=== PATIENT | male | born 1955 | race Caucasian/White ===

== ENCOUNTER → 2025-04-27 13:57 | Outpatient (CLI) | payer MEDICARE, SELFPAY ==
--- NOTE | ~2025-04-27 | XR_ITS ---
EXAMINATION: XR shoulder LT min 2V DATE: 04/27/2025 14:31 INDICATION: Pain in left shoulder TECHNIQUE: 4 images of the left shoulder were obtained. COMPARISON: None FINDINGS: Mild joint space narrowing in the left acromioclavicular joint. There is a 4 x 3 mm ossific density just lateral to the lateral aspect of the acromium. Differential includes osteophytes or avulsion fracture of indeterminate age. Bone mineralization is within normal limits. No other possible fracture. No dislocation of the left humeral head. IMPRESSION: 1.There is a 4 x 3 mm ossific density just lateral to the lateral aspect of the acromium. Differential includes osteophytes or avulsion fracture of indeterminate age. 2. Mild joint space narrowing in the left acromioclavicular joint. If symptoms persist or worsen, consider a short-term follow-up study or additional imaging for further assessment. Reviewed, dictated and finalized at location Q. IMPRESSION: 1.There is a 4 x 3 mm ossific density just lateral to the lateral aspect of the acromium. Differential includes osteophytes or avulsion fracture of indetermin ate age. 2. Mild joint space narrowing in the left acromioclavicular joint. If symptoms persist or worsen, consider a short-term follow-up study or additio nal imaging for further assessment.
--- NOTE | ~2025-04-27 | XR_ITS ---
EXAMINATION: XR shoulder RT min 2V DATE: 04/27/2025 14:32 INDICATION: Pain in right shoulder TECHNIQUE: 4 images of the right shoulder were obtained. COMPARISON: None FINDINGS: Bone mineralization is within normal limits. No fracture. No dislocation. Clips project over the right side of the neck. Mild joint space narrowing in the right acromioclavicular joint. Old healed fracture of the right midclavicle. IMPRESSION: 1. No fracture. 2. Mild joint space narrowing in the right acromioclavicular joint If symptoms persist or worsen, consider a short-term follow-up study or additional imaging for further assessment. Reviewed, dictated and finalized at location Q. IMPRESSION: 1. No fracture. 2. Mild joint space narrowing in the right acromioclavicular joint If symptoms persist or worsen, consider a short-term follow-up study or additio nal imaging for further assessment.
--- NOTE | ~2025-04-27 | XR_ITS ---
EXAMINATION: XR thoracic spine 3V DATE: 04/27/2025 14:31 INDICATION: Pain in thoracic spine TECHNIQUE: 4 images of the thoracic spine were obtained. COMPARISON: None. FINDINGS: Thoracic vertebral body heights and alignment are within normal limits. No compression fracture in the thoracic spine. Mild degenerative change scattered throughout the thoracic spine. IMPRESSION: 1. No compression fracture in the thoracic spine. 2. Mild degenerative change scattered throughout the thoracic spine. If symptoms persist or worsen, consider an MRI of the thoracic spine for further assessment. Reviewed, dictated and finalized at location Q. IMPRESSION: 1. No compression fracture in the thoracic spine. 2. Mild degenerative change scattered throughout the thoracic spine. If symptoms persist or worsen, consider an MRI of the thoracic spine for furthe r assessment.
--- OUTSIDE RECORDS SUMMARY | 2025-04-27 14:03 | XMS_ITS | Clinical Summary ---
Author Organization [facility] Address [address] [place] [address] [place] [address] Care Team Providers Care Community Program Assistant Name Role Phone Unavailable Primary Care Provider Unavailabl e Source Comments [facility],non-owned Affiliates and Associated Physician Practices is amultiple site organization consisting of ambulatory clinics and hospital sitesin [place], [place], [place] and [place]. This disclosure is being madepursuant to the Care Everywhere program and may not contain all information available regarding this patient. Last updated 18.[facility] Allergies No known active allergies Medications * Be aware that medications may not be up to date on this document. Alwaysverify current medications with the patient. divalproex (DEPAKOTE) 500 MG tabletIndicatio ns:Seizures (HCC) Take 1 tablet by mouth 2 times daily 180 tablet 3 9 Active lovastatin (Mevacor) 10 MG tablet Take 1 (one) tablet by mouth at bedtime Active metFORMIN (Glucophage) 500 MG tablet Take 1 (one) tablet by mouth 2 times daily with morning and evening meal Active olmesartan (Benicar) 5 MG tablet Take 1 (one) tablet by mouth once daily Active hydroCHLOROthia zide (Microzide) 12.5 MG capsule Take 1 (one) capsule by mouth once daily Active glimepiride (Amaryl) 1 MG tablet Take 1 (one) tablet by mouth daily with breakfast Active levothyroxine (Synthroid) 25 MCG tablet Take 1 (one) tablet by mouth daily before breakfast Active HYDROcodone-antoinette taminophen ([place]) 5-325 MG tabletIndicatio ns: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, right Take 1 (one) tablet by mouth every 6 hours as needed for Pain 28 tablet Active Encounters Date Type Department Care Team Description 02/24/2025 7:27 AM CDT Anesthesia Event [facility] Op [address] [place], [place] [address] Tobin Jacome MD Ferguson, Joshua A, DO 02/24/2025 7:20 AM CDT - 02/24/2025 7:51 AM CDT Surgery [facility] Op [address] [place] [id number] Steven Carballo, DO KNEE MANIPULATION UNDER ANESTHESIA 02/24/2025 5:29 AM CDT - 02/24/2025 9:24 AM CDT Hospital Encounter [facility] Op [address] [place] [id number] Steven Carballo, DO Surgery General Discharge Disposition: Home or Self Care 02/22/2025 Travel from Last 3 Months Social History Tobacco Use Types Packs/Day Years Used Date Smoking Tobacco: Former Cigarettes S tarted: 2014 Smokeless Tobacco: Never Tobacco Cessation:Counseling Given: Not Answered AUDIT-C Answer Date Recorded Q1: How often do you have a drink containing alc ohol? Monthly or less 02/24/2025 Q2: How many drinks containi ng alcohol do you have on a typical day when you are drinking? 1 or 2 02/24/2025 Q3: How often do you have si x or more drinks on one occasion? Never 02/24/2025 Sex and Gender Information Value Date Recorded Sex Assigned at Not on file Legal Sex Male 3:55 PM CDT Gender Identity Not on file Sexual Orientation Not on file Last Filed Vital Signs Vital Sign Reading Time Taken Comments Blood Pressure 121/67 02/24/2025 8:55 AM CDT Pulse 60 02/24/2025 8:55 AM CDT Temperature 36.2 C (97.2 F) 02/24/2025 7:40 AM CDT Respiratory Rate 12 02/24/2025 8:55 AM CDT Oxygen Saturation 95% 02/24/2025 8:55 AM CDT Inhaled Oxygen Concentration - - Weight 88.5 kg (195 lb) 02/24/2025 5:55 AM CDT Height 182.9 cm (6') 02/24/2025 5:55 AM CDT Body Mass Index 26.45 02/24/2025 5:55 AM CDT Plan of Treatment Health Maintenance Due Date Last Done Comments COLOGUARD (AGES 45-75) - COL ON CA SCREENING 1956 COLON MONITORING 1956 COLONOSCOPY - COLON CA SCREENING 1956 CT COLONOGRAPHY - COLON CA SCREENING 1956 Colorectal Cancer Screening 1956 FIT - COLON CA SCREENING 1956 FLEX SIG - COLON CA SCREENING 1956 MEDICARE AWV 12 MONTHS 1956 HEPATITIS C SCREENING 05/09/1974 DTAP/TDAP/TD VACCINES (1 - Tdap) 1975 PNEUMOCOCCAL VACCINE 50+ (1 of 1 - PCV) 2006 ZOSTER VACCINE (1 of 2) 2006 AAA SCREENING 2021 COVID-19 VACCINE (1 - 2023-2 5 season) 2024 DEPRESSION SCREENING 09/02/2024 INFLUENZA VACCINE (#1) 2025 Respiratory Syncytial Virus (RSV) Vaccine Pt: or over 60 yrs (1 - 1-dose 75+ series) 2031 HEPATITIS B VACCINE Aged Out No longe r eligible based on patient's age to complete this topic HIB VACCINE Aged Out No longer eligi ble based on patient's age to complete this topic HPV VACCINE Aged Out No longer eligi ble based on patient's age to complete this topic MENINGOCOCCAL (Group B) VACC INE SHARED DECISION-MAKING Aged Out No longer eligibl e based on patient's age to complete this topic MENINGOCOCCAL GROUPS A/C/Y/W VACCINE Aged Out No longer eligible b ased on patient's age to complete this topic Procedures Procedure Name Priority Date/Time Associated Diagnosis Comments IMAGING/RADIOLOGY/ XRAY RESULTS ORDER 02/25/2025 2:34 PM CDT GLUCOSE - POINT OF CARE Routine 02/24/2025 8:11 AM CDT ID MANIPULATN KNEE JT+ANESTHESIA 02/24/2025 7:17 AM CDT Special Needs 15 MIN, PSYCHIATRIC LPN PERIPHERAL BLOCK Routine 02/24/2025 7:12 AM CDT GLUCOSE - POINT OF CARE Routine 02/24/2025 6:36 AM CDT from Last 3 Months Results * IMAGING/RADIOLOGY/XRAY RESULTS ORDER (02/25/2025 2:34 PM CDT) Anatomical Region Laterality Modality Other Narrative 02/25/2025 2:34 PM CDT Ordered by an unspecified provider. us Scanned Document IMAGING Final Result * GLUCOSE - POINT OF CARE (02/24/2025 8:11 AM CDT) Only the most recent of2 resultswithin the time period is included. Glucose WB/POC 97 70 - 99 mg/dL 02/24/2025 8:16 AM CDT [facility] Specimen Type Arterial/C apillary 02/24/2025 8:16 AM CDT [facility] Blood BLOOD SPECIMEN / Unknown 02/24/2025 8:11 AM CDT 02/24/2025 8:16 AM CDT Steven Carballo DO LAB - POINT OF CARE DORA SPEARS Final Result [facility] [address] [place] [address] * Peripheral Nerve Block (02/24/2025 7:12 AM CDT) Narrative Leo Lauren DO - 02/24/2025 7:12 AM CDT Leo Lauren DO 02/24/2025 7:13 AM Peripheral Nerve Block Procedure: Peripheral Nerve Block Patient Location: Pre-op Preprocedure Section: Indications: at surgeon's request, postop pain management and at patient's request. Pre-anesthetic Checklist: Patient identified, IV Checked, Site examined and clear, Risks and benefits discussed, Surgical consent verified, Monitors and equipment, Time-out performed, Informed consent obtained, Pre-op evaluation done, Questions answered/anesthesia questions answered, Allergies reviewed and Removal hand/wrist jewelry Monitors: Pulse Ox. Patient Condition: sedated, meaningful contact maintained throughout procedure Patient Position: supine Patient Sedated? Yes Sedation Type: mild Sedation Agents: fentaNYL (PF) (SUBLIMAZE) injection - Intravenous 100 mcg - 02/24/2025 7:04:00 AM midazolam (VERSED) injection - Intravenous 2 mg - 02/24/2025 7:04:00 AM Procedure Section Laterality: right Block Performed: adductor canal Prep: Chloraprep Strerile Field: gloves, mask, hat/cap and sterile ultrasound sleeve Skin localized with: lidocaine (XYLOCAINE) 1 % injection - Infiltration 3 mL - 02/24/2025 7:05:00 AM Needle Type: Echogenic insultaed Needle Gauge: 21 Needle Length: 100 mm Catheter? No Ultrasound Guided? Yes Technique: in plane Visualization: Preliminary scan performed, Important anatomical structures identified, Needle tip visualized throughout the procedure, Target identified, No intraneural or intravascular puncture occurred, Ultrasound image in chart, Local visualized surrounding nerve on ultrasound and Hydrodissection utilized Injection was made incrementally with constant monitoring and aspirations every 5 mL's Block Agents or Additives used? Yes Block agents used: ropivacaine (NAROPIN) 5 MG/ML (0.5%) injection - Infiltration 35 mL - 02/24/2025 7:10:00 AM Procedure Tolerance: tolerated well, performed while the patient was sedated and no immediate complications Assessment: completed Procedure Start Time: 02/24/2025 7:04 AM. Procedure End Time: 02/24/2025 7:10 AM. Procedure Total Time: 6 minutes. Staff Section Anesthesia Provider: Leo Lauren DO, Performed the procedure Additional Comments: This block was performed for post operative analgesia at surgeon's request. Please see intraop navigator for medications administered. Sterile technique followed. A universal timeout was completed prior to the procedure.. Leo Lauren DO GENERAL ANESTHESIA ORDERABL ES Final Result from Last 3 Months [place] [phone]
== END ==
PROVIDERS: PCP Family Medicine; Visit Provider Family Medicine
DX: M51.34 Other intervertebral disc degeneration, thoracic region (principal); M25.511 Pain in right shoulder; M25.512 Pain in left shoulder
CPT/HCPCS: 72072; 73030

== ENCOUNTER 2025-05-19 09:23 | Emergency (ER) | payer MEDICARE, SELFPAY ==
[2025-05-19] VITALS (13 sets, daily range): BP systolic 127–170; BP diastolic 67–93; PULSE 64–76; RESP 11–25; TEMP 36.7; O2SAT 92–99
--- NOTE | ~2025-05-19 | XR_ITS ---
Examination: XR chest 2V Clinical History: chest pain GENERALIZED SOB COUGH X 1 MO. Comparison: None Technique: PA and Lateral Findings: Cardiomediastinal silhouette normal size and configuration. Lungs clear. No acute bony abnormality. IMPRESSION: 1. No acute cardiopulmonary findings. Reviewed, dictated and finalized at location R.
--- NOTE | ~2025-05-19 | CT_ITS ---
EXAMINATION: CTA chest PE protocol DATE: 05/19/2025 11:44 INDICATION: Shortness of breath. Chest pain. TECHNIQUE: Computed tomography angiography (CTA) of the chest was performed with 100 mL Omnipaque-350 intravenous contrast timed to evaluate the pulmonary arteries. Coronal maximum intensity projection 3D-reconstructions were created by the technologist. Automated exposure control and iterative reconstruction technique were employed. The dose-length product was 626.75 mGy-cm. COMPARISON: Chest CT 07/18/2016 FINDINGS: There is mild emphysema. There is mild atelectasis bilaterally. No pleural effusion. There are changes of right hemithyroidectomy. The heart size is normal. No pericardial effusion. There are coronary artery calcifications. There is no pulmonary embolus. There is an 18 mm cyst in the liver. There is mild thoracic spondylosis. There is mild chronic anterior wedging of multiple vertebral bodies. IMPRESSION: 1. No pulmonary embolus. Sensitivity is mildly decreased by motion artifact. 2. Mild emphysema. Reviewed, dictated and finalized at location E.
--- NOTE | 2025-05-19 09:24 | ECG_ITS ---
Test Date: 2025-05-19 09:29:34 Measurements Intervals [place] Rate: 71 P: 33 NJ: 155 QRS: -8 QRSD: 97 T: 34 QT: 383 QTc: 416 Interpretive Statements SINUS RHYTHM INCOMPLETE RIGHT BUNDLE BRANCH BLOCK [90+ ms QRS DURATION, TERMINAL R IN V1/V2, 40+ ms S IN I/aVL/V4/V5/V6] NONSPECIFIC T-WAVE ABNORMALITY ABNORMAL ECG No previous ECG available for comparison Electronically Signed On 05-19-2025 13:04:58 CDT by Terry Stuart M.D.
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
[2025-05-19 09:54] LABS: Hematocrit 37.6 % (42.0-52.0); Hemoglobin 12.5 g/dL (14.0-18.0); Immature Granulocyte Percent A 0.7 % (0-0.5); Lymphocytes Absolute Auto 1.62 K/mm3 (0.9-3.2); Mean Corpuscular HGB Conc 33.2 g/dl (32-36); Mean Corpuscular Hemoglobin 28.7 pg (26-34); Mean Corpuscular Volume 86.4 fl (80-100); Nucleated Red Blood Cells Absolute Auto 0.000 K/mm3 (0.0-0.012); Nucleated Red Blood Cells Perc 0.0 % (0.0-0.2); Platelet Count Result 200 k/mm3 (150-375); Red Blood Count 4.35 M/mm3 (4.6-6.20); White Blood Count 6.8 K/mm3 (4.5-10.0)
[2025-05-19 10:06] LABS: INR 1.0; Prothrombin Time 13.5 Seconds (11.1-14.7)
[2025-05-19 10:07] LABS: Partial Thromboplastin Time 27.7 Seconds (22.3-36.8)
[2025-05-19 10:08] LABS: Alanine Aminotransferase 18 U/L (6-50); Albumin Level 4.4 g/dL (3.5-5.1); Alkaline Phosphatase 77 U/L (38-126); Anion Gap 8 mmol/L (4-12); Aspartate Amino Transferase 28 U/L (17-59); Bilirubin,Total 0.7 mg/dL (0.2-1.3); Blood Urea Nitrogen 21 mg/dL (9-20); Calcium 9.6 mg/dL (8.4-10.2); Carbon Dioxide 27 mmol/L (22-30); Chloride 102 mmol/L (98-107); Estimated CRCL calculation 80 ml/min; Estimated Glomerular Filt Rate > 60; Glucose 120 mg/dL (65-110); Lipase 123 U/L (23-300); Potassium 4.1 mmol/L (3.4-5.0); Sodium 137 mmol/L (137-145); Total Protein 7.2 g/dL (6.3-8.2)
--- OUTSIDE RECORDS SUMMARY | 2025-05-19 10:11 | XMS_ITS | Clinical Summary ---
Author Organization [facility] [employer] Address [address] [place] [address] [place] [address] Care Team Providers Care School Fundraising Director Name Role Phone Unavailable Primary Care Provider Unavailabl e Source Comments [facility] [employer],non-owned Affiliates and Associated Physician Practices is amultiple site organization consisting of ambulatory clinics and hospital sitesin [place], [place], [place] and [place]. This disclosure is being madepursuant to the Care Everywhere program and may not contain all information available regarding this patient. 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, right Take 1 (one) tablet by mouth every 6 hours as needed for Pain 28 tablet Active Encounters Date Type Department Care Team Description 02/24/2025 7:27 AM CDT Anesthesia Event [facility] Op [address], [place] [address] Tobin Jacome MD Ferguson, Joshua A, DO 02/24/2025 7:20 AM CDT - 02/24/2025 7:51 AM CDT Surgery [facility] Op [address] [place] [place] [id number] Steven Carballo, DO KNEE MANIPULATION UNDER ANESTHESIA 02/24/2025 5:29 AM CDT - 02/24/2025 9:24 AM CDT Hospital Encounter [facility] Op [address] [place] [address] Steven Carballo, DO Surgery General Discharge Disposition: [...] (1 of 2) 2006 AAA SCREENING 2021 DEPRESSION SCREENING 09/02/2024 COVID-19 VACCINE (1 - 2023-2 5 season) 2025 INFLUENZA VACCINE (#1) 2025 Respiratory Syncytial Virus [...] OF CARE Routine 02/24/2025 8:11 AM CDT [place] MANIPULATN KNEE JT+ANESTHESIA 02/24/2025 7:17 AM CDT Special Needs 15 MIN, 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
[2025-05-19 10:20] LABS: Troponin I < 0.012 ng/mL (0.000-0.034)
[2025-05-19] MEDS: ASPIRIN 81 MG CHEWABLE TABLET 324 MG PO (10:28)
[2025-05-19] MEDS: MORPHINE SULFATE (*CRX) 4 MG/ML INJ IV PUSH (10:28)
[2025-05-19] MEDS: HYDROmorphone HCL INJ (*CRX) 1 MG/ML SYR 0.5 MG IV PUSH ×2 (11:11→12:39)
--- OUTSIDE RECORDS SUMMARY | 2025-05-19 11:22 | XMS_ITS | Clinical Summary ---
Author Organization [facility] [employer] Address [address] [place] [address] [place] [address] Care Team Providers Care Director Occupational Name Role Phone Unavailable Primary Care Provider Unavailabl e Source Comments [facility] [employer],non-owned Affiliates and Associated Physician Practices is amultiple site organization consisting of ambulatory clinics and hospital sitesin [place], [place], [place] and [place]. This disclosure is being madepursuant to the Care Everywhere program and may not contain all information available regarding this patient. 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, right Take 1 (one) tablet by mouth every 6 hours as needed for Pain 28 tablet Active Encounters Date Type Department Care Team Description 02/24/2025 7:27 AM CDT Anesthesia Event [facility] Op [address] [place], [place] [address] Tobin Jacome MD Ferguson, Joshua A, DO 02/24/2025 7:20 AM CDT - 02/24/2025 7:51 AM CDT Surgery [facility] Op [address] [place] [id number] Steven Carballo, DO KNEE MANIPULATION UNDER ANESTHESIA 02/24/2025 5:29 AM CDT - 02/24/2025 9:24 AM CDT Hospital Encounter [facility] Op [address] [place] [id number] Steven Carballo, DO Surgery General Discharge Disposition: [...] OF CARE Routine 02/24/2025 8:11 AM CDT [place] MANIPULATN KNEE JT+ANESTHESIA 02/24/2025 7:17 AM CDT Special Needs 15 MIN, 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
--- NOTE | 2025-05-19 12:11 | ECG_ITS ---
Test Date: 2025-05-19 12:14:19 Measurements Intervals [place] Rate: 66 P: 29 DE: 163 QRS: -16 QRSD: 99 T: 14 QT: 398 QTc: 417 Interpretive Statements SINUS RHYTHM NONSPECIFIC T-WAVE ABNORMALITY ABNORMAL ECG Electronically Signed On 05-19-2025 13:09:52 CDT by Terry Stuart M.D.
[2025-05-19 12:47] LABS: Troponin I < 0.012 ng/mL (0.000-0.034)
== END 2025-05-19 14:04 | disposition home or self-care (01) ==
PROVIDERS: Emergency Medicine; Emergency Provider Nurse Practitioner Family; PCP Family Medicine
DX: J44.1 Chronic obstructive pulmonary disease with (acute) exacerbation (principal); R07.81 Pleurodynia; D64.9 Anemia, unspecified; I10 Essential (primary) hypertension; E11.9 Type 2 diabetes mellitus without complications; E03.9 Hypothyroidism, unspecified; E78.2 Mixed hyperlipidemia; G40.909 Epilepsy, unspecified, not intractable, without status epilepticus; K21.9 Gastro-esophageal reflux disease without esophagitis; M19.011 Primary osteoarthritis, right shoulder; M19.012 Primary osteoarthritis, left shoulder; H54.8 Legal blindness, as defined in USA; F17.290 Nicotine dependence, other tobacco product, uncomplicated; Z86.0100 Personal history of colon polyps, unspecified; Z79.84 Long term (current) use of oral hypoglycemic drugs; Z79.899 Other long term (current) drug therapy; I45.10 Unspecified right bundle-branch block; R94.31 Abnormal electrocardiogram [ECG] [EKG]
CPT/HCPCS: 36415; 71046; 71275; 80053; 83690; 84484; 85025; 85610; 85730; 93005; 96374; 96375; 96376; 99284; A9270; J1171; J2270; Q9967

== ENCOUNTER 2025-05-20 19:46 | Emergency (ER) | payer MEDICARE, SELFPAY ==
--- NOTE | ~2025-05-20 | CT_ITS ---
EXAMINATION: CT cervical spine wo con DATE: 05/20/2025 21:04 INDICATION: Fall with head injury TECHNIQUE: Computed tomography (CT) of the cervical spine was performed without intravenous contrast. Automated exposure control and iterative reconstruction technique were employed. The dose-length product was 442.71 mGy-cm. COMPARISON: None FINDINGS: Alignment is normal. Moderate osteoarthritis at the atlantoaxial articulation. Vertebral body heights are normal. Disc heights are normal. There is a prominent disc bulge at C3-C4 contribute to mild to moderate central canal stenosis at this level. Additional disc bulges contributing to mild central canal stenosis at C4-C5 and C5-C6. Moderate uncovertebral osteoarthritis bilaterally at C3-C4. Additional minimal and mild osteoarthritis at the remaining uncovertebral joints. Severe facet osteoarthritis on the left at T1-T2. Additional multilevel mild and moderate facet osteoarthritis throughout the cervical and visualized upper thoracic spine. There is minimal mild neural foraminal stenosis at a few levels on the left and right sides of the cervical and upper thoracic spine. Atherosclerotic calcification is at the bilateral carotid bulbs. Cervical soft tissues are otherwise unremarkable. Mild emphysema at the bilateral apices of the lungs. IMPRESSION: 1. Mild cervical spondylosis. No acute osseous abnormality. 2. Mild emphysema. Reviewed, dictated and finalized at location A.
--- NOTE | ~2025-05-20 | CT_ITS ---
EXAMINATION: CT brain wo con DATE: 05/20/2025 21:03 INDICATION: Fall with head injury TECHNIQUE: Computed tomography (CT) of the head was performed without intravenous contrast. Sagittal and coronal reconstructions were performed. The mA was adjusted according to patient size. Iterative reconstruction technique was employed. The dose-length product was 681.00 mGy-cm. COMPARISON: None FINDINGS: No fracture. No acute intracranial hemorrhage, acute infarction or abnormal extra axial fluid collection. There is mild scattered white matter hypoattenuation consistent with chronic small vessel ischemic disease. Symmetric prominence of the sulci consistent with mild age-appropriate diffuse cerebral volume loss. Ventricles are normal and symmetric. No mass/mass effect. Changes of left intraocular lens replacement. Left mastoid is hyperpneumatized with otomastoiditis effusion. There is also a large right mastoid effusion but without fluid in the middle ear cavity. IMPRESSION: 1. No fracture or acute intracranial process. 2. Age-related changes including mild diffuse volume loss and mild scattered white matter hypoattenuation consistent with chronic small vessel ischemic disease. 3. Large right mastoid effusion and left otomastoiditis effusion. Reviewed, dictated and finalized at location A. IMPRESSION: 1. No fracture or acute intracranial process. 2. Age-related changes including mild diffuse volume loss and mild scattered wh ite matter hypoattenuation consistent with chronic small vessel ischemic diseas e. 3. Large right mastoid effusion and left otomastoiditis effusion.
[2025-05-20 19:52] VITALS: BP 144/83; PULSE 83; RESP 18; TEMP 36.6; O2SAT 99
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
[2025-05-20] MEDS: TETANUS,DIPHTHERIA,AC PERTUSSIS ADULT (0.5 ML) BOOSTRIX IM (22:26)
== END 2025-05-20 22:30 | disposition home or self-care (01) ==
LOC: ANHED 22:23
PROVIDERS: Emergency Provider Physician Assistant; PCP Family Medicine
DX: S00.01XA Abrasion of scalp, initial encounter (principal); Z23 Encounter for immunization; J44.1 Chronic obstructive pulmonary disease with (acute) exacerbation; I10 Essential (primary) hypertension; E11.9 Type 2 diabetes mellitus without complications; E03.9 Hypothyroidism, unspecified; E78.2 Mixed hyperlipidemia; G40.909 Epilepsy, unspecified, not intractable, without status epilepticus; K21.9 Gastro-esophageal reflux disease without esophagitis; M19.011 Primary osteoarthritis, right shoulder; M19.012 Primary osteoarthritis, left shoulder; H54.8 Legal blindness, as defined in USA; F17.290 Nicotine dependence, other tobacco product, uncomplicated; Z86.0100 Personal history of colon polyps, unspecified; Z79.84 Long term (current) use of oral hypoglycemic drugs; Z79.899 Other long term (current) drug therapy; M47.812 Spondylosis without myelopathy or radiculopathy, cervical region; W22.8XXA Striking against or struck by other objects, initial encounter
CPT/HCPCS: 70450; 72125; 90471; 90715; 99284

== ENCOUNTER 2025-06-30 12:41 | Outpatient (CLI) | payer MEDICARE, SELFPAY ==
--- OUTSIDE RECORDS SUMMARY | 2025-06-16 03:30 | XMS_ITS | Continuity of Care Document ---
Author Organization [facility] Address [address] [place] [address] [address] [place] [address] Phone Care Team Providers Care Finance Admin Name Role Phone Waldo Garcia MD Unavailable Unavailable Allergies, Adverse Reactions, Alerts Substance Reaction Status Criticality No Known Allergies Active No Inform ation Medications Medication Instructions Dosage Effective Dates (start - stop) Status Comments metformin 1,000 mg tablet take 1 tablet by oral route 2 times every day with morning and evening meals 1000 MG - Active divalproex ER 500 mg tablet,extended release 24 hr take 1 tablet by oral route every day 500 MG - Active rosuvastatin 40 mg tablet take 1 tablet by oral route every day 40 MG - Active glimepiride 1 mg tablet take 1 tablet by oral route every day 1 MG - Active hydrochlorothiazide 12.5 mg tablet take 1 tablet by oral route every day 12.5 MG - Active olmesartan 40 mg tablet take 1 tablet by oral route every day 40 MG - Active levothyroxine 25 mcg capsule take 1 capsule by oral route every day 25 MCG - Active Procedures Procedure Date OFFICE/OUTPATIENT VISIT, [facility] Results Test Name Date and Time Measure Units Reference Range Abnormal Flag Status Commen ts Panel Description: [id number] Final Image Zeiss Result 5 Panel Description: [id number] Final Image Zeiss Result 1 Panel Description: [id number] Final Image Zeiss Result 2 Panel Description: [id number] Final Image Zeiss Result 3 Panel Description: [id number] Final Image Zeiss Result 4 Advance Directives Directive Yes / No Effective Date File Name No Information Encounters Encounter Description Practice Location Reason(s) For Visit Diagnoses Date Provider Providers Copied on Encounter OFFICE/OUTPAT IENT VISIT, [facility], [address] [place] [address] [address] [place], [place], [id number], [place] tel:[phone] [facility]PH CONSULT EMERY MOREJON blurry vision (chief complaint) DM (chief complaint) Diabetes mellitus type 2 without retinopathy Age-related nuclear cataract, right eyeAphakia, left eyeDry eye syndrome of bilateral lacrimal glandsLeft amblyopia Radha Haas. [address], [address], [place], [place], [id number], [place]. tel:[phone] Referring Provider: Family Friends A. Family History Family Member Type Diagnosis Age At Onset Problem No family history of Glaucom a Problem No family history of Macular degeneration Problem No family history of Diabete s mellitus Payers Payer name Insurance type Covered republican ID Authoriza tion(s) MEDIC[place] OF [place] MB [id number] [employer] CI [id number] Social History Type Description Quantity Date Captured Comments Alcohol Use Details Unknown Caffeine Use Details Unknown Tobacco Use Status No Information Smoking Status Unknown if ever smoked Non-Smoking Tobacco Use Details : No Details Available : No Details Available Sex Male Vital Signs Date / Time: Height Weight BMI Pulse Rate Blood Pressure Temperature Respiratory Rate Body Surface Area Head Circumference Head Circ. Percentile Wt./Ayad. Percentile BMI percentile Pulse Ox Inhaled Ox 8:14 AM 72.00 in 86.183 kg (190.00 lbs) 25.7 7 kg/m eter (2) Chief Complaint And Reason For Visit From encounter dated 06/16/2025 08:30'. blurry vision (chief complaint). Description: The 70 year old patient presents for evaluation of blurry vision in the right eye. It started about 1 year(s) ago. Pt states vision is gradually getting worse. He is also bothered by halos and glare at night. [place]. A [facility] OCT was ordered today. gtts: Systane BID OU DM (chief complaint). Description: The patient is present for evaluation of DM in the right eye andleft eye. It started about 10 year(s) ago. A1C was 5.7 in May.Pt is followed by Dr Mccoy in [place], [place]. Reason For Referral Reason For Referral No Information History Of Present Illness Encounter Date Complaint History Of Prese nt Illness blurry vision The 70 year old patient presents for evaluation of blurry vision in the right eye. It started about 1 year(s) ago. Pt states vision is gradually getting worse. He is also bothered by halos and glare at night. He was ref'd by Dr Mccoy, [place], [place] for a cataract evaluation. A [facility] OCT was ordered today. gtts: Systane BID OU DM The patient is p resent for evaluation of DM in the right eye and left eye. It started about 10 year(s) ago. A1C was 5.7 in May.Pt is followed by Dr Mccoy in [place], [place]. Functional Status Date Functional Assessmen t No Information Instructions Date Instruction Additional Infor mation Impression/Plan Related to Diabe tc mellitus type 2 without retinopathy Impression/Plan Related to Age-r elated nuclear cataract, right eye Impression/Plan Related to Aphak ia, left eye Impression/Plan Related to Dry e ye syndrome of bilateral lacrimal glands Impression/Plan Related to Left amblyopia Assessments Type Assessment Date assessment Diabetes mellitus type 2 without retinopathy impression Diabetes mellitus ty pe 2 without retinopathy: E11.9. It started about 10 year(s) ago. A1C was 5.7 in May.Pt is followed by Dr Mccoy in [place], [place] assessment Age-related nuclear cataract, ri ght eye Jun- impression Age-related nuclear cataract, ri ght eye: H25.11 assessment Aphakia, left eye Jun- impression Aphakia, left eye: H27.02 assessment Dry eye syndrome of bilateral la crimal glands impression Dry eye syndrome of bilateral la crimal glands: H04.123 assessment Left amblyopia impression Left amblyopia: H53.002 025 Patient Care Teams Name Effective Dates (start - stop) Status Members No Information
--- OUTSIDE RECORDS SUMMARY | 2025-06-30 13:55 | XMS_ITS | Clinical Summary ---
Author Organization [facility] Address [address] [place] [address] [place] [address] Care Team Providers Care Retail Zone Specialist Name Role Phone Unavailable Primary Care Provider Unavailabl e Source Comments [facility],non-owned Affiliates and Associated Physician Practices is amultiple site organization consisting of ambulatory clinics and hospital sitesin [place], [place], [place] and [place]. This disclosure is being madepursuant to the Care Everywhere program and may not contain all information available regarding this patient. 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
== END 2025-06-30 12:42 | disposition home or self-care (01) ==
LOC: ANHAUDASC 12:41
PROVIDERS: PCP Family Medicine; Visit Provider Otolaryngology
DX: H90.6 Mixed conductive and sensorineural hearing loss, bilateral (principal)
CPT/HCPCS: 92557; 92567

== ENCOUNTER 2025-07-28 10:00 | Outpatient (CLI) | payer MEDICARE, SELFPAY ==
--- OUTSIDE RECORDS SUMMARY | 2025-07-28 10:45 | XMS_ITS | Clinical Summary ---
Author Organization [facility] Address [address] [place] [address] [place] [address] Care Team Providers Care Line Service Supervisor Name Role Phone Unavailable Primary Care Provider Unavailabl e Source Comments [facility],non-owned Affiliates and Associated Physician Practices is amultiple site organization consisting of ambulatory clinics and hospital sitesin [place], [place], [place] and [place]. This disclosure is being madepursuant to the Care Everywhere program and may not contain all information available regarding this patient. 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
[2025-07-28 11:01] LABS: Hematocrit 34.8 % (42.0-52.0); Hemoglobin 11.4 g/dL (14.0-18.0)
[2025-07-28 11:17] LABS: Anion Gap 6 mmol/L (4-12); Blood Urea Nitrogen 17 mg/dL (9-20); Calcium 9.4 mg/dL (8.4-10.2); Carbon Dioxide 31 mmol/L (22-30); Chloride 102 mmol/L (98-107); Estimated Glomerular Filt Rate > 60; Glucose 120 mg/dL (65-110); Potassium 4.0 mmol/L (3.4-5.0); Sodium 139 mmol/L (137-145)
== END 2025-07-28 10:01 | disposition home or self-care (01) ==
LOC: ANHLAB 10:02
PROVIDERS: PCP Family Medicine; Visit Provider Anesthesiology
DX: E78.2 Mixed hyperlipidemia (principal); I10 Essential (primary) hypertension; Z72.0 Tobacco use; Z01.818 Encounter for other preprocedural examination; Z86.2 Personal history of diseases of the blood and blood-forming organs and certain disorders involving the immune mechanism
CPT/HCPCS: 36415; 80048; 85014; 85018

== ENCOUNTER 2025-08-06 08:45 | Day surgery (SDC) | payer MEDICARE, SELFPAY ==
[2025-07-26 12:36] VITALS: BMI 28.8
[2025-08-06] VITALS (7 sets, daily range): BP systolic 104–129; BP diastolic 51–85; PULSE 59–74; RESP 14–17; TEMP 36.3–36.9; O2SAT 95–100
[2025-08-06] MEDS: LACTATED RINGERS 1,000 ML 30 ML IV CONT (09:05)
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
--- NOTE | 2025-08-06 10:50 | WPDHPUPDATE1 ---
History and Physical Update Update Date/Time: 08/06/25 10:50 History and Physical has been reviewed, including an updated exam of the patient. There are NO changes in the patient's condition. Risks, benefits, and alternatives have been discussed and questions answered. Patient agrees to proceed with procedure.
[2025-08-06] MEDS: OXYMETAZOLINE HCL 0.05% NAS 15 ML BTL (*BKC) 1 SPRAY (11:17)
[2025-08-06] MEDS: CIPROFLOXACIN HCL 0.3% OP SOLN 2.5 ML BTL 1 DROP (11:30)
--- NOTE | 2025-08-06 11:56 | W.PM.PROC2 ---
Procedure Note - Detailed Date of Procedure 08/06/25 Pre-op Diagnosis Bilateral Eustachian Tube Dysfunction, Bilateral Chronic Otitis Media with Effusion Post-op Diagnosis Same Procedure Performed Bilateral Eustachian tube balloon dilation, Bilateral myringotomy and tympanostomy T-tubes Surgeon Peng Avendaño MD Anesthesia General Findings Bilateral TMs significantly retracted Scant serous effusion on the right, Moderate serous effusion on the left Bilateral T-tubes placed Description of Procedure Patient was identified in the preoperative area, and informed consent was obtained. The patient was transported to the operating room and placed supine on the operating room table. The anesthesiology service induced general anesthesia and intubated the patient. The patient was then positioned and draped. A surgical time-out was conducted confirming the patient's identity and the procedure to be performed. The procedure began with placement of oxymetazoline soaked pledgets bilaterally for topical decongestion. The pledgets were removed and the nasal cavities were inspected with a 0 degree endoscope. There was evidence of prior sinus surgery. The nasal cavities and sinuses appeared healthy. There was no purulence or drainage or edema. The bilateral Eustachian tubes were then dilated using the Acclarent Eustachian tube balloon dilation system under direct endoscopic visualization. The balloon catheter was inflated to 8atms of pressure and held in place for 2 minutes on each side. The balloon catheter was removed. There was no bleeding. Both Eustachian tube orifices appeared adequately dilated. Attention was turned to the bilateral myringotomy and tympanostomy T-tubes. The right ear was inspected using the binocular microscope. Cerumen was removed from the ear canal using a curette. The tympanic membrane was intact but severely retracted. A myringotomy knife was used to incise the tympanic membrane in the anteroinferior quadrant. A scant amount of serous fluid was suctioned from the middle ear space. A modified Fajardo T-tube was placed within the myringotomy. Ciprofloxacin drops were instilled and a cotton ball was placed in the meatus. In similar fashion, the left ear was inspected using the binocular microscope. Cerumen was removed from the ear canal using a curette. The tympanic membrane was intact but severely retracted. A myringotomy knife was used to incise the tympanic membrane in the anteroinferior quadrant. A moderate amount of serous fluid was suctioned from the middle ear space. A modified Fajardo T-tube was placed within the myringotomy. Ciprofloxacin drops were instilled and a cotton ball was placed in the meatus. The patient was returned to the anesthesiology service. He was awoken, extubated, and transferred to the postoperative recovery area in stable condition. There were no immediate complications. Estimated Blood Loss 1
[2025-08-06] MEDS: fentaNYL CITRATE INJ (*CRX) 100 MCG/2 ML VIAL 25 MCG IV PUSH ×2 (12:08→12:12)
[2025-08-06] MEDS: oxyCODONE HCL (*CRX) 5 MG TAB IR PO (12:35)
== END 2025-08-06 13:05 | disposition home or self-care (01) ==
PROVIDERS: PCP Family Medicine; Visit Provider Otolaryngology
PROC: (CPT 69706; principal; 2025-08-06 10:30)
DX: H69.83 Other specified disorders of Eustachian tube, bilateral (principal); H65.493 Other chronic nonsuppurative otitis media, bilateral
CPT/HCPCS: 69706; 69436; J7342